=== PATIENT | male | born 1995 | race Caucasian/White ===

== ENCOUNTER → 2016-03-23 | Day surgery (SDC) | payer OTHER ==
[~2016-03-23] VITALS: Ht 188 cm; Wt 102.1 kg
[~2016-03-23] MED LIST: ADV100INH INH; ALBU17IN2 INH; AVEL1TAB PO; LIDOCAINE 2% INJ 100 MG/5 ML SDV (FOR ANES.) As Ordered ONE; LR 1,000 ML IV SCH; METOCLOPRAMIDE INJ 10MG/2ML VIAL (J2765) As Ordered ONE; MIDAZOLAM INJ 2 MG/2 ML VIAL (J2250) As Ordered ONE; ONDANSETRON 4MG/2ML VIAL (J2405) IV PRN; PRED10TA PO; PROPOFOL 200 MG/20 ML VIAL As Ordered ONE; albuterol inh INH; dexameTHASONE 4 MG/ML 1ML VIAL (J1100) IV ONE; fentaNYL 100 MCG/2 ML INJECTION (J3010) As Ordered ONE; fentaNYL 100 MCG/2 ML INJECTION (J3010) IV PRN
[2016-03-23 15:14] VITALS: BP 143/76
--- NOTE | 2016-03-30 11:29 | RO ---
DATE OF PROCEDURE: 03/23/2016 PREPROCEDURE DIAGNOSES: Chronic tonsillitis and adenotonsillar hypertrophy. POSTPROCEDURE DIAGNOSES: Chronic tonsillitis and adenotonsillar hypertrophy. PROCEDURE: Tonsillectomy and adenoidectomy. SURGEON: Sage Og MD BRICK WHEELER: ANESTHESIA: General. CLINICAL PREAMBLE: This 20-year-old man presented to the office with history of enlarged tonsils. He also complained of nasal congestion. Physical examination confirmed presence of enlarged tonsils. Management options, including tonsillectomy and adenoidectomy, have been discussed. The patient understood and consented to the procedure. OPERATING ROOM (OR) NARRATION: Patient was identified in preoperative holding and brought to the operating room in stable condition. In supine position on the operating room table, patient received general anesthesia followed by orotracheal intubation without incident. Patient prepped and draped in the usual fashion for the procedure. The Nichole-Irvin mouth gag was then suspended. The red rubber catheter was inserted via the right naris to retract the soft palate. Using a mirror, the hypertrophic adenoid tissue was visualized. Using Coblator wand set at 7 for Coblation and 3 for coagulation, the hypertrophic adenoid tissue was ablated. Hemostasis was achieved. The right tonsil was medialized using curved Allis forceps. Mucosal incision was made over the superior pole of the right tonsil. Using the Coblator wand set at 7 for Coblation and 3 for coagulation, tonsil capsule was identified. Dissection was carried out along this plane to excise the right tonsil. The left tonsil was similarly excised as well. At the end of the procedure, sponge and instrument counts were correct. No complications were encountered. Both tonsil bed and adenoid bed were (dictation cut off). Estimated blood loss was less than 10 mL. General anesthesia was reversed, and patient was extubated and brought to recovery room in stable condition.
== END | disposition home or self-care (01) ==
LOC: M SDC 10:09
PROVIDERS: ATTEND Otolaryngology
DX: J35.3 Hypertrophy of tonsils with hypertrophy of adenoids (principal); J35.01 Chronic tonsillitis; J45.909 Unspecified asthma, uncomplicated; F17.220 Nicotine dependence, chewing tobacco, uncomplicated
CPT/HCPCS: 42821; 88302; J1100; J2250; J2765; J3010